=== PATIENT | female | born 1940 | race Caucasian/White ===

== ENCOUNTER 2021-09-02 14:47 | Emergency (ER) | payer OTHER ==
[~2021-09-02] VITALS: Ht 157.4 cm; Wt 56.2 kg
[2021-09-02] MEDS ORDERED: LISINOPRIL10 M1 PO (15:54)
== END 2021-09-02 18:01 | disposition home or self-care (01) ==
LOC: ED 14:47
DX: S13.9XXA Sprain of joints and ligaments of unspecified parts of neck, initial encounter (principal); S20.219A Contusion of unspecified front wall of thorax, initial encounter; Z79.899 Other long term (current) drug therapy; V89.2XXA Person injured in unspecified motor-vehicle accident, traffic, initial encounter; Y93.89 Activity, other specified; Y92.89 Other specified places as the place of occurrence of the external cause; Y99.8 Other external cause status